=== PATIENT | male | born 1975 | race Caucasian/White ===

== ENCOUNTER 2016-06-12 01:36 | Emergency (ER) | payer OTHER ==
[2016-06-12 01:58] LABS: HEMOGLOBIN 16.3 gm/dl (14.0-17.5); RED BLOOD COUNT 5.46 M/UL (4.20-5.50)
[2016-06-12 02:19] LABS: BUN/CREATININE RATIO 14 (0-10)
== END 2016-06-12 04:35 ==
LOC: ER1 01:36
PROVIDERS: Student in an Organized Health Care Education/Training Program
DX: T54.92XA Toxic effect of unspecified corrosive substance, intentional self-harm, initial encounter (principal); T50.7X2A Poisoning by analeptics and opioid receptor antagonists, intentional self-harm, initial encounter; T40.4X2A Poisoning by other synthetic narcotics, intentional self-harm, initial encounter
CPT/HCPCS: 36415; 36600; 71010; 80053; 80307; 81001; 82550; 82553; 82803; 83874; 84484; 85025; 93005; 96360; 99285; G0480